=== PATIENT | female | born 1980 | race Caucasian/White ===

== ENCOUNTER 2019-03-25 17:50 | Emergency (ER) | payer OTHER ==
[2019-03-25] MEDS ORDERED: methylPREDNISolone Sod Succ/PF 125 MG/2 ML VIAL ONE (18:11)
[2019-03-25] MEDS ORDERED: Water For Inject, Bacteriostat 30 ML ONE (18:12)
[2019-03-25 18:32] LABS: #Monocytes 0.3 thou/uL (0.11-0.59); #Neutrophils 3.5 thou/uL (1.40-6.50); %Basophils 0.4 % (0.0-1.0); %Eosinophils 0.3 % (0.0-10.0); %Lymphocytes 20.3 % (21.0-51.0); Hemoglobin 12.6 g/dL (12.0-16.0); Mean Corpuscular HGB CONC 34.4 g/dL (32.0-36.0); Mean Corpuscular Hemoglobin 32.5 pg (27.0-31.0); Mean Corpuscular Volume 94.5 fL (78.0-98.0); Mean Platelet Volume 6.4 fL (7.4-10.4); Platelet Count 155 thou/uL (130-400); RBC Distribution Width 11.4 % (11.5-14.5); Red Blood Cell (RBC) Count 3.87 mill/uL (4.20-5.40); White Blood Cell (WBC) Count 4.9 thou/uL (4.8-10.8)
--- NOTE | 2019-03-25 18:39 | RAD ---
CHEST TWO VIEWS: History: Cough. Chest soreness. Comparison: 08-29-17 FINDINGS: Minimal vertical parenchymal changes in the retrocardiac region of the left lower lobe evidence for m inimal pneumonia. Heart size is normal. The right lung is clear. IMPRESSION: Minimal left lower lobe pneumonia. POS: [facility]
[2019-03-25] MEDS ORDERED: Ketorolac Tromethamine 30 MG/ML VIAL ONE (18:40)
[2019-03-25 18:42] LABS: BHCG - Serum Negative (NEGATIVE); Pregs Control Background? CLEAR/WHITE (CLR/WHITE); Pregs Control Bar Appear? YES (CONTROL BAR)
[2019-03-25 18:59] LABS: ALT (SGPT) 16 U/L (8-55); AST (SGOT) 14 U/L (5-34); Alkaline Phosphatase 38 U/L (40-150); Anion Gap 13 mmol/L (10-20); BUN (Urea Nitrogen) 4 mg/dL (7.0-18.7); Bilirubin, Total 0.3 mg/dL (0.2-1.2); Calc. Creatinine Clearance 0 mL/min (70-130); Calcium 8.9 mg/dL (7.8-10.44); Carbon Dioxide 24 mmol/L (22-29); Chloride 105 mmol/L (98-107); Estimated GFR-MDRD Greater than 90; Globulin 2.9 g/dL (2.4-3.5); Glucose 111 mg/dL (70-105); Protein, Total 6.9 g/dL (6.0-8.3); Sodium 139 mmol/L (136-145)
[2019-03-25] MEDS ORDERED: cefTRIAXone\\ROCEPHIN 1 GM VIAL ONE (19:14)
[2019-03-25] MEDS ORDERED: Sodium Chloride 0.9% 100 ML ONE (19:15)
[2019-03-25] MEDS ORDERED: Potassium Chloride 20 MEQ TAB ONE (19:32)
[2019-03-25 21:41] LABS: Troponin I Less than 0.010 ng/mL (< 0.028)
== END 2019-03-25 22:03 | disposition home or self-care (01) ==
LOC: SCSER 17:50
DX: J18.1 Lobar pneumonia, unspecified organism (principal); R94.31 Abnormal electrocardiogram [ECG] [EKG]; J45.909 Unspecified asthma, uncomplicated; Z79.899 Other long term (current) drug therapy; Z79.51 Long term (current) use of inhaled steroids
CPT/HCPCS: 36415; 71046; 80053; 84484; 84703; 85025; 85379; 93005; 94640; 96361; 96365; 96375; J0696; J1885; J2930; J3490; J7620

== ENCOUNTER 2019-03-30 10:22 | Emergency (ER) | payer OTHER ==
[2019-03-30] MEDS ORDERED: Magnesium 2 GM/50 ML BAG (IN WATER) ONE (10:48)
[2019-03-30] MEDS ORDERED: Dexamethasone 4 mg/ml Vial ONE (10:48)
[2019-03-30 11:01] LABS: #Basophils 0.1 thou/uL (0.0-0.2); #Eosinphils 0.2 thou/uL (0.0-0.7); #Monocytes 0.3 thou/uL (0.11-0.59); %Basophils 1.1 % (0.0-1.0); %Eosinophils 3.8 % (0.0-10.0); %Lymphocytes 44.3 % (21.0-51.0); %Monocytes 5.9 % (0.0-10.0); %Neutrophils 44.9 % (42.0-75.0); Hemoglobin 14.5 g/dL (12.0-16.0); Mean Corpuscular HGB CONC 34.4 g/dL (32.0-36.0); Mean Corpuscular Hemoglobin 32.2 pg (27.0-31.0); Mean Corpuscular Volume 93.4 fL (78.0-98.0); Mean Platelet Volume 7.4 fL (7.4-10.4); Platelet Count 323 thou/uL (130-400); RBC Distribution Width 11.5 % (11.5-14.5); Red Blood Cell (RBC) Count 4.51 mill/uL (4.20-5.40); White Blood Cell (WBC) Count 4.5 thou/uL (4.8-10.8)
[2019-03-30] MEDS ORDERED: Albuterol Sulfate 2.5 mg/3 ml Neb ONE (11:09)
[2019-03-30 11:13] LABS: BHCG - Serum Negative (NEGATIVE); Pregs Control Background? CLEAR/WHITE (CLR/WHITE); Pregs Control Bar Appear? YES (CONTROL BAR)
[2019-03-30 11:37] LABS: ALT (SGPT) 38 U/L (8-55); AST (SGOT) 18 U/L (5-34); Albumin 4.6 g/dL (3.5-5.0); Alkaline Phosphatase 43 U/L (40-150); Anion Gap 14 mmol/L (10-20); BUN (Urea Nitrogen) 10 mg/dL (7.0-18.7); Bilirubin, Total 0.4 mg/dL (0.2-1.2); CK (CPK) 40 U/L (29-168); Calc. Creatinine Clearance 0 mL/min (70-130); Calcium 9.9 mg/dL (7.8-10.44); Carbon Dioxide 23 mmol/L (22-29); Chloride 107 mmol/L (98-107); Estimated GFR-MDRD 78; Glucose 106 mg/dL (70-105); Lipase 51 U/L (8-78); Protein, Total 7.6 g/dL (6.0-8.3); Sodium 140 mmol/L (136-145)
--- NOTE | 2019-03-30 12:05 | CT ---
CTA CHEST WITH CONTRAST: Date: 03/30/19 Multiple axial tomograms obtained following pulmonary angio protocol with multiplanar reconstruction and 3D postprocessing. INDICATION: Shortness of breath. Dyspnea. Assess for pulmonary embolus. FINDINGS: Pulmonary arteries exhibit suboptimal opacification; however, the opacification is adequate to assess proximal pulmonary arteries. There is no evidence of proximal pulmonary embolus. More distal emboli to the subsegmental level cannot be excluded. Thoracic aorta is unremarkable. Mediastinum shows nonspecific lymph nodes. The lungs show patchy biba silar atelectasis seen posteriorly. Early inflammatory infiltrate cannot be excluded. No effusion. Upper abdomen unremarkable. IMPRESSION: 1. Suboptimal opacification of pulmonary arteries; however, no evidence of proximal pulmonary embolu s identified. 2. Patchy bibasilar atelectasis and/or infiltrate in the posterior lung bases. POS: [facility]
[2019-03-30] MEDS ORDERED: ISOVUE-370 76%-LOCM 1 ML ONE (15:47)
== END 2019-03-30 12:45 | disposition home or self-care (01) ==
LOC: ERS 10:22
DX: J18.9 Pneumonia, unspecified organism (principal); J45.909 Unspecified asthma, uncomplicated; Z79.51 Long term (current) use of inhaled steroids
CPT/HCPCS: 71275; 80053; 82550; 82553; 83690; 83880; 84443; 84484; 84703; 85025; 93005; 94640; 96365; 96375; J1100; J3475; J7611; J7620

== ENCOUNTER 2021-06-06 13:17 | Emergency (ER) | payer OTHER ==
[~2021-06-06 13:17] MED LIST: Iopamidol-370 76% 500 ML 1 ML ONE
[2021-06-06 13:56] LABS: #Basophils 0.1 thou/uL (0.0-0.2); #Eosinphils 0.3 thou/uL (0.0-0.7); #Monocytes 0.4 thou/uL (0.11-0.59); %Basophils 2.1 % (0.0-1.0); %Eosinophils 5.2 % (0.0-10.0); %Lymphocytes 33.7 % (21.0-51.0); %Monocytes 6.7 % (0.0-10.0); %Neutrophils 52.3 % (42.0-75.0); Mean Corpuscular HGB CONC 34.9 g/dL (32.0-36.0); Mean Corpuscular Hemoglobin 33.8 pg (27.0-31.0); Mean Corpuscular Volume 96.9 fL (78.0-98.0); Mean Platelet Volume 7.3 fL (7.4-10.4); Platelet Count 280 thou/uL (130-400); RBC Distribution Width 11.2 % (11.5-14.5); Red Blood Cell (RBC) Count 4.44 mill/uL (4.20-5.40); White Blood Cell (WBC) Count 5.8 thou/uL (4.8-10.8)
[2021-06-06 14:18] LABS: ALT (SGPT) 16 U/L (8-55); AST (SGOT) 16 U/L (5-34); Albumin 4.3 g/dL (3.5-5.0); Alkaline Phosphatase 35 U/L (40-110); Anion Gap 13 mmol/L (10-20); BUN (Urea Nitrogen) 10 mg/dL (7.0-18.7); Bilirubin, Total 0.3 mg/dL (0.2-1.2); Calc. Creatinine Clearance 0 mL/min (70-130); Calcium 9.2 mg/dL (7.8-10.44); Carbon Dioxide 25 mmol/L (22-29); Chloride 104 mmol/L (98-107); Globulin 3.1 g/dL (2.4-3.5); Glucose 88 mg/dL (70-105); Potassium 4.2 mmol/L (3.5-5.1); Protein, Total 7.4 g/dL (6.0-8.3); Sodium 138 mmol/L (136-145)
[2021-06-06] MEDS ORDERED: Ketorolac Tromethamine 30 MG/ML VIAL ONE (15:55)
[2021-06-06] MEDS ORDERED: Dexamethasone 10 MG/ML VIAL ONE (15:55)
== END 2021-06-06 18:40 | disposition home or self-care (01) ==
LOC: ERS 13:17
DX: R06.02 Shortness of breath (principal); I51.7 Cardiomegaly; J45.909 Unspecified asthma, uncomplicated; Z79.899 Other long term (current) drug therapy
CPT/HCPCS: 36415; 71046; 71275; 80053; 84484; 85025; 85379; 93005; 96374; 96375; J1100; J1885; Q9967